=== PATIENT | female | born 1990 | race African-American/Black ===

== ENCOUNTER 2024-07-12 12:05 | Emergency (ER) | payer MEDICAID, SELFPAY ==
[~2024-07-12] VITALS: Ht 167.6 cm; Wt 80.7 kg
[2024-07-12] MEDS: NAPROXEN 250 MG TAB PO ONE (15:58)
[2024-07-12] MEDS: LIDOCAINE 5% (LIDODERM) PATCH TD ONE (15:59)
[2024-07-12 16:16] LABS: BASO % 0.6 % (0.0-1.0); EOS # 0.2 10^3/uL (0.0-0.5); EOS % 3.4 % (0.0-3.0); HEMATOCRIT 38.7 % (36.0-47.0); HEMOGLOBIN 12.7 g/dl (12.0-15.5); LYMPH # 2.7 10^3/uL (1.5-5.0); LYMPH % 51.2 % (24.0-44.0); MEAN CORPUSCULAR HEMOGLOBIN 28.3 pg (27.0-33.0); MEAN CORPUSCULAR HGB CONC 32.8 g/dl (32.0-36.5); MEAN CORPUSCULAR VOLUME 86.4 fl (80.0-96.0); MONO # 0.5 10^3/uL (0.0-0.8); MONO % 8.8 % (2.0-8.0); NEUTROPHILS # 1.9 10^3/uL (1.5-8.5); NEUTROPHILS % 35.8 % (36.0-66.0); PLATELET COUNT, AUTOMATED 311 10^3/uL (150-450); RED BLOOD COUNT 4.48 10^6/uL (4.00-5.40); WHITE BLOOD COUNT 5.2 10^3/uL (4.0-10.0)
[2024-07-12 16:52] LABS: HCG, SERUM QUANTITATIVE < 2.6 MIU/ML (<4.2)
[2024-07-12 16:53] LABS: BLOOD UREA NITROGEN 10 MG/DL (9-23); CALCIUM LEVEL 9.5 MG/DL (8.5-10.1); CARBON DIOXIDE LEVEL 28 MMOL/L (20-31); CHLORIDE LEVEL 104 MMOL/L (98-107); CREATININE FOR GFR 0.53 MG/DL (0.55-1.30); GLOMERULAR FILTRATION RATE > 90.0 (>60); GLUCOSE, FASTING 90 MG/DL (60-100); POTASSIUM SERUM 4.1 MMOL/L (3.5-5.1); SODIUM LEVEL 140 MMOL/L (136-145)
[2024-07-12 16:56] LABS: VITAMIN B12 LEVEL 373 PG/ML (211-911)
[2024-07-12] MEDS ORDERED: LIDO5DIS41 TOP (17:38)
[2024-07-12] MEDS ORDERED: CYCL-707 PO (17:38)
[2024-07-12 17:52] VITALS: BP 130/70; TEMP 97.7; O2SAT 99
[2024-07-16 19:42] LABS: LYME TOTAL ANTIBODY CIA <= 0.90 Index (<=0.90)
== END 2024-07-12 17:53 | disposition home or self-care (01) ==
LOC: M ED 12:05
DX: S39.012A Strain of muscle, fascia and tendon of lower back, initial encounter (principal); Y93.9 Activity, unspecified; Y92.9 Unspecified place or not applicable; Y99.9 Unspecified external cause status; Z79.899 Other long term (current) drug therapy

== ENCOUNTER → 2024-11-05 | Outpatient (REF) | payer MEDICAID ==
[~2024-11-05] MED LIST: CYCL-707 PO; LIDO1ADH93 TOP
[2024-11-05 16:02] LABS: ALT/SGPT 13 U/L (7.0-40); AST/SGOT 15 U/L (<34); CALCIUM LEVEL 8.8 MG/DL (8.5-10.1); CARBON DIOXIDE LEVEL 26 MMOL/L (20-31); CHLORIDE LEVEL 107 MMOL/L (98-107); CHOLESTEROL LEVEL 150 MG/DL (<200); CHOLESTEROL RISK RATIO 2.62 (<5); CREATININE FOR GFR 0.56 MG/DL (0.55-1.30); GLOMERULAR FILTRATION RATE > 90.0 (>60); LDL CHOLESTEROL 73.4 MG/DL (<100); NON-HDL-C 92.8 MG/DL; PLATELET COUNT, AUTOMATED 331 10^3/uL (150-450); POTASSIUM SERUM 4.2 MMOL/L (3.5-5.1); SODIUM LEVEL 142 MMOL/L (136-145); TRIGLYCERIDES LEVEL 97 MG/DL (<150)
[2024-11-05 16:04] LABS: TOTAL 25(OH) VITAMIN D 28.8 NG/ML (20.0-100.0)
[2024-11-05 16:57] LABS: ESTIMATED AVERAGE GLUCOSE 108.0 MG/DL (60-110)
== END ==
LOC: M LAB REF 15:02
PROVIDERS: ATTEND Student in an Organized Health Care Education/Training Program
DX: E55.9 Vitamin D deficiency, unspecified (principal); E66.09 Other obesity due to excess calories

== ENCOUNTER 2024-11-24 01:46 | Emergency (ER) | payer OTHER ==
[~2024-11-24] VITALS: Ht 167.6 cm; Wt 80.5 kg
[2024-11-24 02:05] VITALS: TEMP 98.2
[2024-11-24 05:32] LABS: BASO # 0.0 10^3/uL (0.0-0.2); BASO % 0.4 % (0.0-1.0); EOS # 0.2 10^3/uL (0.0-0.5); EOS % 4.1 % (0.0-3.0); LYMPH # 2.3 10^3/uL (1.5-5.0); LYMPH % 46.5 % (24.0-44.0); MONO # 0.6 10^3/uL (0.0-0.8); MONO % 11.4 % (2.0-8.0); NEUTROPHILS # 1.9 10^3/uL (1.5-8.5); NEUTROPHILS % 37.4 % (36.0-66.0); PLATELET COUNT, AUTOMATED 275 10^3/uL (150-450)
[2024-11-24 05:34] LABS: URINE PREG TEST NEGATIVE (NEGATIVE)
[2024-11-24] MEDS: ACETAMINOPHEN 325 MG TAB PO ONE (05:55)
[2024-11-24] MEDS: AUGMENTIN 875 MG TAB PO ONE (05:55)
[2024-11-24 06:03] LABS: ALT/SGPT 13 U/L (7.0-40); AST/SGOT 16 U/L (<34); CALCIUM LEVEL 9.1 MG/DL (8.5-10.1); CARBON DIOXIDE LEVEL 24 MMOL/L (20-31); CHLORIDE LEVEL 106 MMOL/L (98-107); CREATININE FOR GFR 0.58 MG/DL (0.55-1.30); GLOMERULAR FILTRATION RATE > 90.0 (>60); POTASSIUM SERUM 3.9 MMOL/L (3.5-5.1); SODIUM LEVEL 141 MMOL/L (136-145)
[2024-11-24 07:30] VITALS: BP 126/77; O2SAT 100
[2024-11-24] MEDS ORDERED: IBUP600T42 PO (08:18)
[2024-11-24] MEDS ORDERED: AMOX875T2 PO (08:21)
== END 2024-11-24 08:29 | disposition home or self-care (01) ==
LOC: M ED 01:46
DX: K04.7 Periapical abscess without sinus (principal); Z79.1 Long term (current) use of non-steroidal anti-inflammatories (NSAID); Z79.2 Long term (current) use of antibiotics; Z79.899 Other long term (current) drug therapy

== ENCOUNTER 2025-02-28 08:47 | Emergency (ER) | payer OTHER ==
[~2025-02-28] VITALS: Ht 167.6 cm; Wt 80.9 kg
[~2025-02-28 08:47] MED LIST changes: +AMOX875T2 PO; +IBUP600T42 PO
[2025-02-28 10:03] LABS: BASO # 0.0 10^3/uL (0.0-0.2); BASO % 0.3 % (0.0-1.0); EOS # 0.1 10^3/uL (0.0-0.5); EOS % 1.4 % (0.0-3.0); LYMPH # 1.8 10^3/uL (1.5-5.0); LYMPH % 48.1 % (24.0-44.0); MONO # 0.4 10^3/uL (0.0-0.8); MONO % 10.3 % (2.0-8.0); NEUTROPHILS # 1.5 10^3/uL (1.5-8.5); NEUTROPHILS % 39.9 % (36.0-66.0); PLATELET COUNT, AUTOMATED 353 10^3/uL (150-450)
[2025-02-28 10:05] LABS: KETONE, URINE AUTO RFX 1+ mg/dL (NEGATIVE); LEUKOCYTE ESTERASE UR AUTO RFX NEGATIVE (NEGATIVE); MUCUS, URINE RFX LARGE (NEGATIVE); NITRITE, URINE AUTO RFX NEGATIVE (NEGATIVE); RBC, URINE AUTO RFX 1 /HPF (0-3); SQUAM EPITHELIAL CELL UR AURFX 2 /HPF (0-6); WBC, URINE AUTO RFX 3 /HPF (0-3)
[2025-02-28 10:37] LABS: ALT/SGPT 19 U/L (7.0-40); AST/SGOT 21 U/L (<34); CALCIUM LEVEL 9.3 MG/DL (8.5-10.1); CARBON DIOXIDE LEVEL 26 MMOL/L (20-31); CHLORIDE LEVEL 106 MMOL/L (98-107); CREATININE FOR GFR 0.62 MG/DL (0.55-1.30); GLOMERULAR FILTRATION RATE > 90.0 (>60); POTASSIUM SERUM 3.7 MMOL/L (3.5-5.1); SODIUM LEVEL 142 MMOL/L (136-145)
[2025-02-28 10:43] LABS: HCG, SERUM QUANTITATIVE < 2.6 MIU/ML (<4.2)
[2025-02-28 11:04] LABS: HIV 1&2 SCREEN NEGATIVE (NEGATIVE)
[2025-02-28 11:38] LABS: GC DNA AMPLIFICATION NEGATIVE (NEGATIVE)
[2025-02-28] MEDS ORDERED: DOXY-441 PO (12:32)
[2025-02-28] MEDS ORDERED: METR-265 PO (12:33)
[2025-02-28 12:41] VITALS: O2SAT 100
[2025-02-28] MEDS: cefTRIAXone 500 MG VIAL IM ONE (12:42)
[2025-02-28] MEDS: DOXYCYCLINE HYCLATE 100 MG TABLET PO ONE (12:42)
[2025-02-28] MEDS: LIDOCAINE 1% SDV 5 ML VIAL DILUENT ONE (12:42)
[2025-02-28 12:45] VITALS: BP 130/68; TEMP 98.6
[2025-02-28 14:01] LABS: GC DNA AMPLIFICATION NEGATIVE (NEGATIVE)
== END 2025-02-28 12:51 | disposition home or self-care (01) ==
LOC: M ED 08:47
DX: N76.0 Acute vaginitis (principal); Z11.3 Encounter for screening for infections with a predominantly sexual mode of transmission
CPT/HCPCS: 80048; 80076; 81001; 83690; 84702; 85025; 86780; 87070; 87210; 87389; 87810; 87850; 87880; 96372; 99284; J0696